=== PATIENT | male | born 1975 | race Asian ===

== ENCOUNTER 2022-01-12 14:55 | Emergency (ER) | payer OTHER ==
[~2022-01-12] VITALS: Ht 175.3 cm; Wt 72.6 kg
[2022-01-12 15:09] VITALS: BP_SYST 138
[2022-01-12] MEDS ORDERED: DIPH-TET-PERTUS Vaccine 0.5 ML VIAL (ADACEL) I.M. ONE (15:15)
[2022-01-12] MEDS ORDERED: CIPR500T5 PO (15:58)
[2022-01-12 16:17] VITALS: BP_SYST 124
== END 2022-01-12 16:17 | disposition home or self-care (01) ==
LOC: SED 14:55
DX: S50.851A Superficial foreign body of right forearm, initial encounter (principal); W26.8XXA Contact with other sharp object(s), not elsewhere classified, initial encounter; Y93.89 Activity, other specified; Y92.89 Other specified places as the place of occurrence of the external cause; Y99.8 Other external cause status
CPT/HCPCS: 90715; 99284